=== PATIENT | male | born 1960 | race Caucasian/White ===

== ENCOUNTER 2017-09-13 09:57 | Outpatient (CLI) | payer BC ==
--- NOTE | 2017-09-13 12:57 | RAD ---
CERVICAL SPINE FIVE VIEWS: History: Cervical disc degeneration. Follow up to surgery. FINDINGS: Anterior plate and screws transfix C5, C6, C7. Interbody implants are in place at these levels. Vert ebral bodies maintain normal height and alignment. Mild degenerative changes are seen. IMPRESSION: Post-operative and degenerative changes of the cervical spine noted. POS: JUAN
== END 2017-09-13 09:58 | disposition home or self-care (01) ==
LOC: TBSIIMAG 09:57
PROVIDERS: ATTEND Neurological Surgery
DX: M50.30 Other cervical disc degeneration, unspecified cervical region (principal); Z98.890 Other specified postprocedural states
CPT/HCPCS: 72040

== ENCOUNTER 2019-08-06 19:30 | Outpatient (CLI) | payer OTHER | END 2019-08-06 19:31 | disposition home or self-care (01) | LOC: SLEEPLAB 19:30 | PROVIDERS: ATTEND Family Medicine | DX: G47.33 Obstructive sleep apnea (adult) (pediatric) (principal); R53.83 Other fatigue; E66.9 Obesity, unspecified; R06.83 Snoring; I10 Essential (primary) hypertension; E11.9 Type 2 diabetes mellitus without complications | CPT/HCPCS: 95811 ==

== ENCOUNTER 2019-09-09 19:30 | Outpatient (CLI) | payer OTHER | END 2019-09-09 19:31 | disposition home or self-care (01) | LOC: SLEEPLAB 19:30 | PROVIDERS: ATTEND Family Medicine | DX: G47.33 Obstructive sleep apnea (adult) (pediatric) (principal); R53.83 Other fatigue; E66.9 Obesity, unspecified; R06.83 Snoring; I10 Essential (primary) hypertension; E11.9 Type 2 diabetes mellitus without complications | CPT/HCPCS: 95811 ==

== ENCOUNTER 2020-03-16 15:51 | Outpatient (CLI) | payer OTHER ==
--- NOTE | 2020-03-16 16:25 | ULT ---
ULTRASOUND DOPPLER DUPLEX VENOUS LEFT LOWER EXTREMITY: DATE: 03/16/2020 HISTORY: Left lower extremity pain and erythema in 59-year-old male TECHNIQUE: Grayscale, color-flow, and spectral analysis, of major veins of left lower extremity. FINDINGS: There is demonstration of blood flow with normal compressibility, of the left common femoral, profund a femoral, greater saphenous, femoral, popliteal, and posterior tibial, veins. Enlarged left inguinal lymph node is noted. IMPRESSION: No deep venous thrombosis of left lower extremity.
== END 2020-03-16 15:52 | disposition home or self-care (01) ==
LOC: SCSULT 15:51
PROVIDERS: ATTEND Family Medicine
DX: M79.605 Pain in left leg (principal)

== ENCOUNTER 2020-05-08 10:44 | Outpatient (CLI) | payer OTHER ==
--- NOTE | 2020-05-08 11:21 | ULT ---
ULTRASOUND RETROPERITONEUM COMPLETE: (RENAL) DATE: 05/08/2020 HISTORY: 59-year-old male with stage III chronic kidney disease N 18.3 FINDINGS: The right kidney measures 12 x 6 x 5.5 cm. The left kidney measures 12 x 8.5 x 6.5 cm. Both kidneys have normal parenchymal echogenicity. There is no hydronephrosis. There is an approximately 2 x 2.5 x 2 cm cystic lesion at the posterior aspect of the left renal midp ole parenchyma. Cursory images of the urinary bladder demonstrate no gross abnormality. IMPRESSION: 1) approximately 2.5 cm left renal cyst. 2) otherwise negative
== END 2020-05-08 10:45 | disposition home or self-care (01) ==
LOC: BICULT 10:44
PROVIDERS: ATTEND Internal Medicine
DX: N18.3 Chronic kidney disease, stage 3 (moderate) (principal); N28.1 Cyst of kidney, acquired
CPT/HCPCS: 76770

== ENCOUNTER 2020-10-26 06:45 | Outpatient (CLI) | payer OTHER ==
[2020-10-26 10:46] LABS: #Eosinphils 0.4 10x3/uL (0.0-0.5); #Monocytes 0.9 10x3/uL (0.0-1.1); #Neutrophils 2.7 10x3/uL (1.5-8.4); %Basophils 0.4 % (0.0-2.0); %Eosinophils 7.8 % (0.0-6.0); %Lymphocytes 23.9 % (18.0-47.0); %Monocytes 16.2 % (0.0-10.0); %Neutrophils 51.5 % (40.0-75.0); Hemoglobin 15.2 g/dL (14.0-18.0); Mean Corpuscular Volume 91.1 fl (80.0-100.0); Mean Platelet Volume 11.1 fl (7.4-10.4); Platelet Count 175 10x3/uL (130-400); RBC Distribution Width 12.6 % (11.5-14.5); Red Blood Cell (RBC) Count 5.06 10x6/uL (4.40-5.80); White Blood Cell (WBC) Count 5.2 10x3/uL (4.5-11.0)
[2020-10-27 01:18] LABS: SARS-CoV-2 MS2 Positive; SARS-CoV-2 N Gene Positive; SARS-CoV-2 S Gene Positive; SARS-CoV-2 by NAA DETECTED (NotDetected); SARS-CoV-2 orf1ab Positive
== END 2020-10-26 06:46 | disposition home or self-care (01) ==
LOC: LABBT 06:45
PROVIDERS: ATTEND Family Medicine
DX: U07.1 COVID-19 (principal); Z01.818 Encounter for other preprocedural examination; G56.01 Carpal tunnel syndrome, right upper limb
CPT/HCPCS: 85025; 87635; 93005; 93010; U0003

== ENCOUNTER 2021-01-16 11:29 | Inpatient (IN) | payer OTHER ==
[2021-01-16 13:54] VITALS: BMI 34.7
[2021-01-16] MEDS ORDERED: Ondansetron PF 4 MG/2 ML Vial IVP PRN (14:26)
[2021-01-16] MEDS ORDERED: Morphine 2 MG/ML VIAL SLOW IVP PRN (14:28)
[2021-01-16] MEDS ORDERED: Dextrose 50% Abboject 50 ML SYRINGE SLOW IVP PRN (14:31)
[2021-01-16] MEDS ORDERED: Dextrose 5% in Water 1,000 ML IV PRN (14:31)
[2021-01-16] MEDS ORDERED: HumaLOG 300 UNITS/3 ML VIAL SC PRN (14:31)
[2021-01-16] MEDS: Sodium Chloride 0.9% 1,000 ML IV SCH (15:21)
[2021-01-16] MEDS: Piperacillin/Tazobactam 3.375 GM in Sodium Chloride 0.9% 100 ML IVPB SCH ×2 (15:22→21:01)
[2021-01-16] MEDS: Carvedilol 3.125 MG TAB PO SCH (17:55)
[2021-01-16] MEDS: Rosuvastatin 20 MG TAB PO SCH (21:01)
[2021-01-16] MEDS: TICAGRELOR 90 MG TABLET PO SCH (21:01)
[2021-01-16 22:57] LABS: SARS-CoV-2 PCR by NAA Not Detected (NotDetected)
[2021-01-17] MEDS: Piperacillin/Tazobactam 3.375 GM in Sodium Chloride 0.9% 100 ML IVPB SCH ×4 (02:50→20:13)
[2021-01-17] MEDS: Sodium Chloride 0.9% 1,000 ML IV SCH ×3 (02:51→22:05)
[2021-01-17 05:43] LABS: #Eosinphils 0.1 thou/uL (0.0-0.7); #Lymphocytes 1.3 thou/uL (1.20-3.40); #Monocytes 0.7 thou/uL (0.11-0.59); %Basophils 0.2 % (0.0-1.0); %Eosinophils 1.7 % (0.0-10.0); %Lymphocytes 18.2 % (21.0-51.0); %Monocytes 9.8 % (0.0-10.0); %Neutrophils 70.1 % (42.0-75.0); Hemoglobin 11.2 g/dL (14.0-18.0); Mean Corpuscular HGB CONC 32.3 g/dL (32.0-36.0); Mean Corpuscular Hemoglobin 29.4 pg (27.0-31.0); Mean Corpuscular Volume 91.2 fL (78.0-98.0); Platelet Count 260 thou/uL (130-400); RBC Distribution Width 12.2 % (11.5-14.5); Red Blood Cell (RBC) Count 3.82 mill/uL (4.70-6.10); White Blood Cell (WBC) Count 7.2 thou/uL (4.8-10.8)
[2021-01-17 06:10] LABS: ALT (SGPT) 30 U/L (8-55); AST (SGOT) 20 U/L (5-34); Albumin 3.2 g/dL (3.5-5.0); Alkaline Phosphatase 96 U/L (40-110); Anion Gap 12 mmol/L (10-20); BUN (Urea Nitrogen) 10 mg/dL (8.4-25.7); Bilirubin, Total 0.5 mg/dL (0.2-1.2); Calc. Creatinine Clearance 83 mL/min (70-130); Calcium 8.3 mg/dL (7.8-10.44); Carbon Dioxide 23 mmol/L (22-29); Chloride 109 mmol/L (98-107); Globulin 3.1 g/dL (2.4-3.5); Glucose 82 mg/dL (70-105); Protein, Total 6.3 g/dL (6.0-8.3); Sodium 140 mmol/L (136-145)
[2021-01-17] MEDS: Amlodipine 5 MG TAB PO SCH (08:47)
[2021-01-17] MEDS: TICAGRELOR 90 MG TABLET PO SCH ×2 (08:47→20:13)
[2021-01-17] MEDS: Aspirin 81 mg Enteric Coated Tablet PO SCH (08:47)
[2021-01-17] MEDS: Carvedilol 3.125 MG TAB PO SCH ×2 (08:48→17:03)
[2021-01-17] MEDS: Rosuvastatin 20 MG TAB PO SCH (20:13)
[2021-01-18] MEDS: Piperacillin/Tazobactam 3.375 GM in Sodium Chloride 0.9% 100 ML IVPB SCH ×3 (02:08→14:27)
[2021-01-18] MEDS: Carvedilol 3.125 MG TAB PO SCH ×2 (06:00→17:20)
[2021-01-18] MEDS: Sodium Chloride 0.9% 1,000 ML IV SCH (06:01)
[2021-01-18 06:46] LABS: Prothrombin Time 13.4 sec (12.0-14.7)
[2021-01-18] MEDS: Amlodipine 5 MG TAB PO SCH (08:57)
[2021-01-18] MEDS: TICAGRELOR 90 MG TABLET PO SCH ×2 (08:58→14:28)
[2021-01-18] MEDS: Aspirin 81 mg Enteric Coated Tablet PO SCH ×2 (08:58→14:24)
[2021-01-18] MEDS ORDERED: Fentanyl 100 MCG/2 ML VIAL ONE (10:12)
[2021-01-18] MEDS ORDERED: Sodium Bicarbonate 2.5 MEQ/5 ML VIAL ONE (10:12)
[2021-01-18] MEDS ORDERED: Midazolam HCl 2 mg/2 ml Vial ONE (10:12)
[2021-01-18] MEDS ORDERED: Iopamidol 300 61% 50 ML VIAL FS ONE (11:25)
[2021-01-18 17:07] VITALS: BP 136/86; TEMP 98.3
== END 2021-01-18 18:11 | disposition home or self-care (01) | DRG 920 ==
LOC: T4-A 13:28
PROVIDERS: ADMIT Internal Medicine; ATTEND Internal Medicine
PROC: 0FP4X0Z Removal of Drainage Device from Gallbladder, External Approach (ICD-10-PCS; principal; 2021-01-18)
PROC: 0F9430Z Drainage of Gallbladder with Drainage Device, Percutaneous Approach (ICD-10-PCS; 2021-01-18)
DX: T85.510A Breakdown (mechanical) of bile duct prosthesis, initial encounter (principal); K81.0 Acute cholecystitis; Z20.822 Contact with and (suspected) exposure to COVID-19; E78.5 Hyperlipidemia, unspecified; I25.10 Atherosclerotic heart disease of native coronary artery without angina pectoris; N18.30 Chronic kidney disease, stage 3 unspecified; Y83.8 Other surgical procedures as the cause of abnormal reaction of the patient, or of later complication, without mention of misadventure at the time of the procedure; I12.9 Hypertensive chronic kidney disease with stage 1 through stage 4 chronic kidney disease, or unspecified chronic kidney disease; E11.69 Type 2 diabetes mellitus with other specified complication; E66.9 Obesity, unspecified; E11.22 Type 2 diabetes mellitus with diabetic chronic kidney disease; Z98.890 Other specified postprocedural states; Z87.891 Personal history of nicotine dependence; Z79.899 Other long term (current) drug therapy; Z68.34 Body mass index [BMI] 34.0-34.9, adult
CPT/HCPCS: 36415; 36416; 47531; 47536; 75984; 80053; 85025; 85610; 87635; C1729; J2250; J2543; J3010; J3490; Q9967; U0003; U0005